=== PATIENT | female | born 1975 | race Caucasian/White ===

== ENCOUNTER → 2019-06-08 18:23 | Outpatient (ROUT) | payer OTHER, SELFPAY ==
[2019-06-08 18:36] LABS: Add Manual Diff / Slide Review NO; Basophils Absolute Auto 100 /uL (0-100); Basophils Percent Auto 0.6 % (0-2); Eosinophils Absolute Auto 200 /uL (0-450); Eosinophils Percent Auto 2.3 % (2-4); Hematocrit 41.5 % (36-46); Hemoglobin 13.9 g/dL (12.0-16.0); Lymphocytes Absolute Auto 2500 /uL (1100-4500); Lymphocytes Percent Auto 26.7 % (25-40); Mean Corpuscular HGB Conc 33.6 % (30-36); Mean Corpuscular Hemoglobin 30.1 PG (26-34); Mean Corpuscular Volume 89.7 fL (80-100); Monocytes Absolute Auto 600 /uL (0-900); Neutrophils Absolute Auto 6100 /uL (1500-7000); Neutrophils Percent Auto 64.4 % (50-75); Platelet Count 337 X10^3/uL (150-400); Red Blood Cell Count 4.63 X10^6/uL (4.0-5.2); Red Cell Distribution Width 12.8 % (11.6-14.8); White Blood Cell Count 9.4 X10^3/uL (4.5-11.0)
[2019-06-08 18:44] LABS: Alanine Aminotransferase 26 IU/L (9-52); Albumin 4.4 g/dL (3.5-5.0); Albumin Globulin Ratio 1.6 (1.0-2.8); Alkaline Phosphatase 45 U/L (38-126); Aspartate Aminotransferase 29 IU/L (14-36); Bilirubin Total 0.4 mg/dL (0.2-1.3); Blood Urea Nitrogen 20 mg/dL (7-17); Calcium 9.9 mg/dL (8.4-10.2); Carbon Dioxide 27 mmol/L (22-32); Chloride 102 mmol/L (98-107); Cholesterol 220 mg/dL (140-199); Estimated Glomerular Filt Rate > 60.0 mL/min (>60); Globulin 2.8 g/dL (1.7-4.1); Glucose 95 mg/dL (70-100); HDL Cholesterol 62 mg/dL (40-60); HEMOLYSIS < 15 (0-50); LDL Cholesterol Calculated 117 mg/dL (<100); Potassium 4.3 mmol/L (3.4-5.1); Sodium 139 mmol/L (137-145); Total Protein 7.2 g/dL (6.3-8.2); Triglycerides 207 mg/dL (35-150)
[2019-06-08 18:59] LABS: Erythrocyte Sedimentation Rate 8 MM/HR (0-20)
== END ==
PROVIDERS: PCP Internal Medicine; Visit Provider Physician Assistant
DX: G44.52 New daily persistent headache (NDPH) (principal); R00.2 Palpitations; E78.5 Hyperlipidemia, unspecified; R23.2 Flushing
CPT/HCPCS: 80053; 80061; 83735; 84443; 85025; 85651; 86140

== ENCOUNTER → 2019-06-21 09:04 | Outpatient (CLI) | payer OTHER, SELFPAY ==
--- NOTE | 2019-06-21 | DI.RAD.S_ITS ---
PROCEDURE: XR CERVICAL SPINE 4V OR 5V INDICATIONS: Cervicalgia TECHNIQUE: 5 views of the cervical spine acquired. COMPARISON: None. FINDINGS: Bones: No fractures or dislocations to the T2 level. Oblique images demonstrate no bony foraminal stenoses. No acute compression fractures. Multilevel cervical spondylosis most pronounced at C5-6 and C6-7. Soft tissues: No prevertebral soft tissue swelling. IMPRESSION: Multilevel cervical spondylosis most pronounced at C5-6 and C6-7. No significant neural foraminal narrowing seen on the oblique views. No acute radiographic abnormalities. Dictated by: Shubham Fermin M.D. on 06/21/2019 at 10:35 Approved by: Shubham Fermin M.D. on 06/21/2019 at 10:37
== END ==
PROVIDERS: PCP Physician Assistant; Visit Provider Physician Assistant
DX: M54.2 Cervicalgia (principal); M47.812 Spondylosis without myelopathy or radiculopathy, cervical region
CPT/HCPCS: 72050

== ENCOUNTER → 2020-08-15 19:20 | Outpatient (ROUT) | payer OTHER, SELFPAY ==
[2020-08-15 19:45] LABS: Add Manual Diff / Slide Review NO; Basophils Absolute Auto 0 /uL (0-100); Basophils Percent Auto 0.3 % (0-2); Eosinophils Absolute Auto 300 /uL (0-450); Hematocrit 40.4 % (36-46); Hemoglobin 13.8 g/dL (12.0-16.0); Lymphocytes Absolute Auto 2900 /uL (1100-4500); Lymphocytes Percent Auto 31.6 % (25-40); Mean Corpuscular HGB Conc 34.1 % (30-36); Mean Corpuscular Hemoglobin 30.4 PG (26-34); Mean Corpuscular Volume 89.1 fL (80-100); Monocytes Absolute Auto 900 /uL (0-900); Monocytes Percent Auto 9.6 % (3-14); Neutrophils Absolute Auto 5200 /uL (1500-7000); Neutrophils Percent Auto 55.5 % (50-75); Platelet Count 359 X10^3/uL (150-400); Red Blood Cell Count 4.53 X10^6/uL (4.0-5.2); Red Cell Distribution Width 12.9 % (11.6-14.8); White Blood Cell Count 9.3 X10^3/uL (4.5-11.0)
[2020-08-15 19:51] LABS: HEMOLYSIS < 15 (0-50); Iron 42 ug/dL (37-170)
[2020-08-15 19:55] LABS: Alanine Aminotransferase 30 IU/L (<35); Albumin 4.6 g/dL (3.5-5.0); Albumin Globulin Ratio 1.6 (1.0-2.8); Alkaline Phosphatase 50 U/L (38-126); Aspartate Aminotransferase 32 IU/L (14-36); BUN Creatinine Ratio 22.2 (6-22); Bilirubin Total 0.3 mg/dL (0.2-1.3); Blood Urea Nitrogen 14 mg/dL (7-17); C-Reactive Protein Quant 2.1 mg/dL (<1.0); Calcium 9.9 mg/dL (8.4-10.2); Carbon Dioxide 29 mmol/L (22-32); Chloride 103 mmol/L (98-107); Cholesterol 223 mg/dL (140-199); Estimated Glomerular Filt Rate > 60.0 mL/min (>60); Globulin 2.8 g/dL (1.7-4.1); Glucose 93 mg/dL (70-100); HDL Cholesterol 63 mg/dL (40-60); HEMOLYSIS < 15 (0-50); LDL Cholesterol Calculated 136 mg/dL (<100); Magnesium 2.4 mg/dL (1.6-2.3); Potassium 4.3 mmol/L (3.4-5.1); Sodium 138 mmol/L (137-145); Total Protein 7.4 g/dL (6.3-8.2); Triglycerides 119 mg/dL (35-150)
[2020-08-15 20:01] LABS: Percent Iron Saturation 12 % (15-50); Total Iron Binding Capacity 357 ug/dL (265-497); Transferrin 284 mg/dL (206-381)
[2020-08-15 20:09] LABS: Vitamin D 25 Hydroxy (D3) 23.6 ng/mL (30.0-100.0)
[2020-08-15 20:23] LABS: TSH w/ Reflex to FT4 1.22 uIU/mL (0.47-4.68)
[2020-08-15 20:27] LABS: Ferritin 200 ng/mL (6-137)
[2020-08-15 20:30] LABS: Erythrocyte Sedimentation Rate 6 MM/HR (0-20)
[2020-08-15 20:41] LABS: Vitamin B12 568 pg/mL (239-931)
== END ==
PROVIDERS: PCP Physician Assistant; Visit Provider Physician Assistant
DX: R00.2 Palpitations (principal); E78.5 Hyperlipidemia, unspecified; R51.9 Headache, unspecified; D64.9 Anemia, unspecified
CPT/HCPCS: 80053; 80061; 82306; 82607; 82728; 83540; 83550; 83735; 84443; 85025; 85651; 86140

== ENCOUNTER → 2020-08-19 09:42 | Outpatient (CLI) | payer OTHER, SELFPAY ==
--- NOTE | 2020-08-19 | DI.MRI.S_ITS ---
PROCEDURE: MR HEAD/BRAIN WO/W CON INDICATIONS: Chronic headache. Delayed speech. Blurry vision. Other symptoms and signs involving the nervous sys TECHNIQUE: Noncontrast axial T1 spin echo, axial T2 fast spin echo, sagittal and axial FLAIR, coronal T2 fast spin echo, axial gradient echo, axial diffusion and ADC through the brain. After the administration of contrast, axial and coronal 3D VIBE or T1 spin echo with fat saturation through the brain. COMPARISON: None. FINDINGS: Image quality: Diagnostic, with note made of motion artifact. CSF Spaces: Basal cisterns are patent. No extra-axial fluid collections. Ventricles are normal in size and shape. Brain: No midline shift. No intracranial bleeds or masses. No abnormal intracranial enhancement. The brainstem appears normal. Diffusion-weighted images demonstrate no acute ischemic insults. No chronic ischemic insults. Normal intravascular flow voids are present. Skull and face: Calvarial marrow is normal in signal. Orbits appear normal. Sinuses: Sinuses and mastoids appear clear. Note is made of mild leftward nasal septal deviation. IMPRESSION: No imaging explanation is found for this patient's presenting symptoms. No findings of acute or subacute infarction can be seen. No masses or abnormal enhancement can be seen. Dictated by: Matt Allan M.D. on 08/19/2020 at 9:53 Approved by: Matt Allan M.D. on 08/19/2020 at 9:55
== END ==
PROVIDERS: PCP Physician Assistant; Referring Provider Physician Assistant; Visit Provider Physician Assistant
DX: R51.0 Headache with orthostatic component, not elsewhere classified (principal); H53.8 Other visual disturbances; F80.9 Developmental disorder of speech and language, unspecified; R29.818 Other symptoms and signs involving the nervous system
CPT/HCPCS: 70553

== ENCOUNTER → 2020-11-28 09:39 | Outpatient (CLI) | payer OTHER, SELFPAY ==
[2020-11-28] MEDS: COVID-19 VACC #1, MRNA(MOD) 100 MCG/0.5 ML VIAL IM (09:46)
== END ==
PROVIDERS: PCP Physician Assistant; Visit Provider Internal Medicine
DX: Z23 Encounter for immunization (principal)
CPT/HCPCS: 0011A; 91301

== ENCOUNTER → 2021-01-01 09:42 | Outpatient (CLI) | payer OTHER, SELFPAY ==
[2021-01-01] MEDS: COVID-19 VACC #2, MRNA(MOD) 100 MCG/0.5 ML VIAL IM (09:52)
== END ==
PROVIDERS: PCP Physician Assistant; Visit Provider Internal Medicine
DX: Z23 Encounter for immunization (principal)
CPT/HCPCS: 0012A; 91301

== ENCOUNTER 2021-12-10 00:37 | Emergency (ER) | payer OTHER, SELFPAY ==
[2021-12-10] VITALS (20 sets, daily range): BP systolic 144–192; BP diastolic 92–113; PULSE 73–99; RESP 0–25; TEMP 36.7; O2SAT 86–100
--- NOTE | 2021-12-10 00:55 | DI.RAD.S_ITS ---
PROCEDURE: XR CHEST 1V INDICATIONS: syncope TECHNIQUE: One view of the chest was acquired. COMPARISON: None. FINDINGS: Surgical changes and devices: None. Lungs and pleura: Lungs are clear. No pleural effusions or pneumothorax. Mediastinum: Mediastinal contours appear normal. Heart size is normal. Bones and chest wall: No suspicious bony lesions. Overlying soft tissues appear unremarkable. IMPRESSION: Portable chest within normal limits. Dictated by: Matt Allan M.D. on 12/10/2021 at 0:06 Approved by: Matt Allan M.D. on 12/10/2021 at 0:06
--- NOTE | 2021-12-10 01:00 | ED.ARRPALP ---
HPI - Arrhythmia/Palpitations General Chief Complaint: Arrhythmia/Palpitations Stated Complaint: PASSED OUT AND HIT HEAD Time Seen by Provider: 12/10/21 01:00 Source: patient Mode of arrival: Ambulatory History of Present Illness HPI narrative: Otherwise healthy 46-year-old currently on oral contraceptives only was getting ready for bed brushing her teeth in the bathroom felt significant palpitations and then woke up on the floor complaining of head pain on the right side of her head and right arm pain from falling. She reports no other injuries or trauma. Upon awakening there was no loss of bowel or bladder. She was no longer experiencing any palpitations, having no chest pain. No nausea, vomiting, diarrhea. Some tenderness on the right side of her head where her head hit the floor but no overt headache. No gross neurologic complaints. Related Data Previous Rx's Medication Instructions Recorded levonorgestrel-ethinyl estradiol 1 tab PO QDAY #3 pac 10/16/16 0.1 mg-20 mcg tablet (Aviane) topiramate 25 mg tablet (Topamax) 25 mg PO QDAY #30 tab 10/16/16 topiramate 100 mg tablet (Topamax) 100 mg PO HS #30 tab 06/15/18 levonorgestrel-ethinyl estradiol 1 tab PO QDAY #28 tab 08/03/18 0.1 mg-20 mcg tablet (Aviane) Allergies Allergy/AdvReac Type Severity Reaction Status Date / Time No Known Drug Allergies Allergy Verified 12/10/21 02:55 Review of Systems Review of Systems Narrative: The remainder of review Patient History Family History Grandfather Heart disease Grandmother Age: 90 Cancer Mother Age: 70 Chronic lymphatic leukemia Hypertension High cholesterol H/O brain surgery Grandfather Heart disease Grandmother Hypothyroidism Social History Smoking Status: Never smoker Smoking Status: Never smoker Exam Initial Vital Signs Initial Vital Signs: Vital Signs Temperature 98.1 F 12/10/21 00:55 Pulse Rate 80 12/10/21 00:55 Respiratory Rate 22 12/10/21 00:55 Blood Pressure 176/109 H 12/10/21 00:55 Pulse Oximetry 100 12/10/21 00:55 General: Healthy appearing, in no acute distress. Able to give a complete and coherent history. Well-nourished well-developed HEENT: Moist mucous membranes, normal sclera with reactive pupils, minor tenderness in the right parietal area where her head the floor. There is no contusion or abrasion. Neck: No cervical spine tenderness. supple Respiratory: Lungs are clear to auscultation, no wheezing no rales no rhonchi. Full and symmetrical air movement Cardiac: Regular rate and rhythm no murmurs no bruits Abdomen: Soft, nontender, good bowel tones, no flank pain Skin: Warm and dry, no rashes Neurologic: Grossly neurologically intact with no obvious asymmetries or abnormalities Extremities: Minor tenderness to the right elbow with full range of motion, no abrasions and no effusion. Lower extremities with no significant edema or tenderness and Well perfused Psych: Cooperative, appropriate insight and affect Course Orders Ordered: ED Orders 12/10/21 00:50 Complete Blood Count AUTO DIFF Stat Comprehensive Metabolic Panel Stat D Dimer Stat Lipase Stat Troponin & CK Cardiac Panel Stat 12/10/21 00:55 XR chest 1V Stat EKG-12 Lead Stat 12/10/21 01:14 CT head/brain wo con Stat 12/10/21 01:28 COVID19 -Nasal swab/Pre-Proc Stat 12/10/21 02:45 Magnesium Stat Trop I [Troponin I] Stat 12/10/21 03:39 EKG-12 Lead Stat 12/10/21 09:30 PTT [Partial Thromboplastin Time] Q6H 12/10/21 15:30 PTT [Partial Thromboplastin Time] Q6H 12/10/21 21:30 PTT [Partial Thromboplastin Time] Q6H 12/11/21 03:30 PTT [Partial Thromboplastin Time] Q6H Heparin Sodium/Dextrose (Heparin Drip) 25,000 unit in 500 mls @ 20 mls/hr IV CONT MISTI; Protocol Last Admin: 12/10/21 03:36 Dose: 1,000 units/hr, 20 mls/hr Documented by: Discontinued Medications Aspirin (Aspirin 81 Mg Chew Tab) 324 mg PO NOW ONE Stop: 12/10/21 02:39 Last Admin: 12/10/21 02:43 Dose: 324 mg Documented by: ALAYNA Heparin Sodium (Porcine) (Heparin 5,000 Unit/Ml Vial) 4,000 unit IV NOW ONE Stop: 12/10/21 03:17 Last Admin: 12/10/21 03:36 Dose: 4,000 unit Documented by: Labetalol HCl (Labetalol 20 Mg/4 Ml Syringe) 20 mg IV NOW ONE Stop: 12/10/21 03:42 Last Admin: 12/10/21 03:44 Dose: 20 mg Documented by: Metoprolol Tartrate (Metoprolol Tartrate 5 Mg/5 Ml Inj) 5 mg IV Q5M MISTI Stop: 12/10/21 02:56 Last Admin: 12/10/21 03:00 Dose: 5 mg Documented by: Admin: 12/10/21 02:54 Dose: 5 mg Documented by: Admin: 12/10/21 02:43 Dose: 5 mg Documented by: ALAYNA Nitroglycerin (Nitroglycerin Oint 1 Inch/Gm Oint...G.) 1 inch TOP NOW ONE Stop: 12/10/21 03:07 Last Admin: 12/10/21 03:12 Dose: 1 inch Documented by: ALAYNA Potassium Chloride (Potassium Chloride 20 Meq Tab) 40 meq PO NOW ONE Stop: 12/10/21 02:35 Last Admin: 12/10/21 02:43 Dose: 40 meq Documented by: ALAYNA Vital Signs Vital signs: Vital Signs - 8 hr 12/10/21 00:55 12/10/21 01:03 12/10/21 01:10 Temperature 98.1 F Pulse Rate 80 82 87 Respiratory Rate 22 20 25 H Blood Pressure 176/109 H 182/99 H Pulse Oximetry 100 98 98 12/10/21 01:24 12/10/21 01:30 12/10/21 02:00 Temperature Pulse Rate 80 78 80 Respiratory Rate 0 L 0 L Blood Pressure 159/99 H 163/107 H Pulse Oximetry 99 98 97 12/10/21 02:30 12/10/21 02:47 12/10/21 02:54 Temperature Pulse Rate 86 99 H 82 Respiratory Rate Blood Pressure 176/103 H 192/110 H 183/103 H Pulse Oximetry 97 98 98 12/10/21 03:00 12/10/21 03:02 12/10/21 03:11 Temperature Pulse Rate 73 73 73 Respiratory Rate Blood Pressure 188/113 H 189/110 H 175/104 H Pulse Oximetry 98 97 98 12/10/21 03:44 Temperature Pulse Rate 74 Respiratory Rate Blood Pressure 190/112 H Pulse Oximetry MDM - Arrhythmia/Palpitations Lab Data Result diagrams: 12/10/21 00:50 12/10/21 00:50 Labs: Lab Results 12/10/21 12/10/21 12/10/21 Range/Units 00:50 00:50 00:50 WBC 9.7 (4.5-11.0) X10^3/uL RBC 4.53 (4.0-5.2) X10^6/uL Hgb 13.9 (12.0-16.0) g/dL Hct 40.1 (36-46) % MCV 88.5 (80-100) fL MCH 30.7 (26-34) PG MCHC 34.7 (30-36) % RDW 13.0 (11.6-14.8) % Plt Count 306 (150-400) X10^3/uL Neut % (Auto) 55.9 (50-75) % Lymph % (Auto) 33.3 (25-40) % [place] % (Auto) 4.9 (3-14) % Eos % (Auto) 3.5 (2-4) % Baso % (Auto) 2.4 H (0-2) % Neut # (Auto) 5400 (5796-0846) /uL Lymph # (Auto) 3200 (6467-7373) /uL [place] # (Auto) 500 (0-900) /uL Eos # (Auto) 300 (0-450) /uL Baso # (Auto) 200 H (0-100) /uL D-Dimer < 200 (<230) ng/mL Sodium 137 (137-145) mmol/L Potassium 3.2 L (3.4-5.1) mmol/L Chloride 104 (98-107) mmol/L Carbon Dioxide 26 (22-32) mmol/L BUN 12 (7-17) mg/dL Creatinine 0.65 (0.52-1.04) mg/dL Estimated GFR > 60.0 (>60) mL/min BUN/Creatinine Ratio 18.5 (6-22) Glucose 114 H (70-100) mg/dL Calcium 9.1 (8.4-10.2) mg/dL Magnesium (1.6-2.3) mg/dL Total Bilirubin 0.4 (0.2-1.3) mg/dL AST 25 (14-36) IU/L ALT 22 (<35) IU/L Alkaline Phosphatase 38 (38-126) U/L Total Creatine Kinase 59 (30-135) U/L CK-MB (CK-2) TNP CK-MB (CK-2) Rel Index TNP Troponin I 0.041 H (0.01-0.034) ng/mL Total Protein 7.4 (6.3-8.2) g/dL Albumin 4.4 (3.5-5.0) g/dL Globulin 3.0 (1.7-4.1) g/dL Albumin/Globulin Ratio 1.5 (1.0-2.8) Lipase 188 (23-300) U/L SARS-CoV-2 (PCR) (Negative) 12/10/21 12/10/21 12/10/21 Range/Units 01:28 02:45 02:45 WBC (4.5-11.0) X10^3/uL RBC (4.0-5.2) X10^6/uL Hgb (12.0-16.0) g/dL Hct (36-46) % MCV (80-100) fL MCH (26-34) PG MCHC (30-36) % RDW (11.6-14.8) % Plt Count (150-400) X10^3/uL Neut % (Auto) (50-75) % Lymph % (Auto) (25-40) % [place] % (Auto) (3-14) % Eos % (Auto) (2-4) % Baso % (Auto) (0-2) % Neut # (Auto) (5139-2447) /uL Lymph # (Auto) (2732-8707) /uL [place] # (Auto) (0-900) /uL Eos # (Auto) (0-450) /uL Baso # (Auto) (0-100) /uL D-Dimer (<230) ng/mL Sodium (137-145) mmol/L Potassium (3.4-5.1) mmol/L Chloride (98-107) mmol/L Carbon Dioxide (22-32) mmol/L BUN (7-17) mg/dL Creatinine (0.52-1.04) mg/dL Estimated GFR (>60) mL/min BUN/Creatinine Ratio (6-22) Glucose (70-100) mg/dL Calcium (8.4-10.2) mg/dL Magnesium 2.1 (1.6-2.3) mg/dL Total Bilirubin (0.2-1.3) mg/dL AST (14-36) IU/L ALT (<35) IU/L Alkaline Phosphatase (38-126) U/L Total Creatine Kinase (30-135) U/L CK-MB (CK-2) CK-MB (CK-2) Rel Index Troponin I 0.190 H* (0.01-0.034) ng/mL Total Protein (6.3-8.2) g/dL Albumin (3.5-5.0) g/dL Globulin (1.7-4.1) g/dL Albumin/Globulin Ratio (1.0-2.8) Lipase (23-300) U/L SARS-CoV-2 (PCR) Negative (Negative) Imaging Data Chest x-ray: Radiologist's Impresson: FINDINGS:? ? Surgical changes and devices:? None.? ? Lungs and pleura:? Lungs are clear.? No pleural effusions or pneumothorax.? ? Mediastinum:? Mediastinal contours appear normal.? Heart size is normal.? ? Bones and chest wall:? No suspicious bony lesions.? Overlying soft tissues appear unremarkable.? ? IMPRESSION:? ? Portable chest within normal limits. ? ? ? Dictated by: Matt Allan M.D. on 12/10/2021 at 0:06 ? ? CT scan - head: Radiologist's Impresson: FINDINGS:? Image quality:? Excellent.? ? CSF spaces:? Basal cisterns are patent.? No extra-axial fluid collections.? Ventricles are normal in size and shape.? ? Brain:? No midline shift.? No intracranial masses or hemorrhage.? [place]-white matter interface is normal.? ? Skull and face:? There is a minimal soft tissue scalp hematoma seen involving the right parietal region, as on series 2 image 22. No underlying calvarial fracture is seen.? Calvarium and visualized facial bones are intact, without suspicious lesions.? ? Sinuses:? Visualized sinuses and mastoids are clear.? IMPRESSION:? Normal intracranial head CT. ? No acute intracranial hemorrhage is seen.? ? Minimal right parietal scalp hematoma. ? No displaced calvarial fracture is seen.? ? ? Dictated by: Matt Allan M.D. on 12/10/2021 at 0:26 ? ? ECG Data Interpretation: Sinus rhythm at a rate of 87 Normal intervals, normal axis No acute ischemic changes #2 3:57 am Sinus rhythm at a rate of 78 No significant changes from previous MDM Narrative Medical decision making narrative: 46-year-old woman with no significant medical history describes an acute onset of rapid heartbeat followed by syncope, waking up on the ground no evidence of seizure. No intracranial hemorrhage. Slightly elevated troponin. She is still significantly hypertensive. Will try IV metoprolol and evaluate the response. To be given 325 aspirin. Her D-dimer returns less than 200 so pulmonary embolism is not an immediate concern. She remains pain free and has been in a sinus rhythm mild tachycardia in the 100 range. Explained to her that we are going to repeat the troponin and when I have those results back up talking with escrow assistant colleagues and come up with a definitive treatment plan for her 2:45 Second troponin is increasing Heparin is started. Nitropaste is placed. Metoprolol help nicely with rate but was not very effective with blood pressure control. Beginning to make phone calls looking for transfer, [facility] full [facility], [facility] in [place] is no beds available at this time. Wait list [facility]. NO at [facility]. has a bed, waiting for hospitalist 350 Little change after adding topical nitrates to blood pressure. 20mg IV labetolol given. Pressure is trending down. 405 Care is reveiwed, DR Ankush Black, hospitalist excepts transfer. Transport will be called. Patient is updated. Questions are answered Critical Care Time Critical Care Time Critical Care Time: Yes Total Critical Care Time: 33 Attestation: Critical care time is separate from other billable procedures. There is a high probability of a significant, sudden or life-threatening deterioration that requires my full and direct attention, intervention and personal management. This critical care time includes consultation with family and other consulting doctors, review of records, and interpretation of data from labs, EKGs and imaging as well as managements of hypertension with IV medication, cardiac arrhythmia and and STEMI. Discharge Plan Departure Patient Disposition: [facility] Clinical Impression: Cardiac related syncope, Non-ST elevation DE (NSTEMI) Prescriptions: No Action levonorgestrel-ethinyl estrad [Aviane] 1 EACH tablet 1 tab PO QDAY Qty: 3 4RF topiramate [Topamax] 25 MG tablet 25 mg PO QDAY Qty: 30 1RF topiramate [Topamax] 100 mg tablet 100 mg PO HS Qty: 30 0RF Rx Instructions: Please schedule follow up levonorgestrel-ethinyl estrad [Aviane] 0.1-20 mg-mcg tablet 1 tab PO QDAY Qty: 28 0RF Rx Instructions: Still needs to establish w/pcp. No future fills until established. 08/03/18 Referrals: Allegra Eden PA-C [Primary Care Provider] -
--- NOTE | 2021-12-10 01:04 | PC.NURSE ---
pt states she had a syncopal episode at home after having some palpitations, pt denies any previous hx of such, pt is aao x 3 ambulated to room without difficulty denies any cp
[2021-12-10 01:05] LABS: Add Manual Diff / Slide Review NO; Basophils Absolute Auto 200 /uL (0-100); Basophils Percent Auto 2.4 % (0-2); Eosinophils Absolute Auto 300 /uL (0-450); Eosinophils Percent Auto 3.5 % (2-4); Hematocrit 40.1 % (36-46); Hemoglobin 13.9 g/dL (12.0-16.0); Lymphocytes Absolute Auto 3200 /uL (1100-4500); Lymphocytes Percent Auto 33.3 % (25-40); Mean Corpuscular HGB Conc 34.7 % (30-36); Mean Corpuscular Hemoglobin 30.7 PG (26-34); Mean Corpuscular Volume 88.5 fL (80-100); Monocytes Absolute Auto 500 /uL (0-900); Monocytes Percent Auto 4.9 % (3-14); Neutrophils Absolute Auto 5400 /uL (1500-7000); Neutrophils Percent Auto 55.9 % (50-75); Platelet Count 306 X10^3/uL (150-400); Red Blood Cell Count 4.53 X10^6/uL (4.0-5.2); White Blood Cell Count 9.7 X10^3/uL (4.5-11.0)
[2021-12-10 01:10] LABS: Alanine Aminotransferase 22 IU/L (<35); Albumin 4.4 g/dL (3.5-5.0); Albumin Globulin Ratio 1.5 (1.0-2.8); Alkaline Phosphatase 38 U/L (38-126); Aspartate Aminotransferase 25 IU/L (14-36); BUN Creatinine Ratio 18.5 (6-22); Bilirubin Total 0.4 mg/dL (0.2-1.3); Blood Urea Nitrogen 12 mg/dL (7-17); Calcium 9.1 mg/dL (8.4-10.2); Carbon Dioxide 26 mmol/L (22-32); Chloride 104 mmol/L (98-107); Creatine Kinase 59 U/L (30-135); Estimated Glomerular Filt Rate > 60.0 mL/min (>60); Glucose 114 mg/dL (70-100); HEMOLYSIS < 15 (0-50); Lipase 188 U/L (23-300); Potassium 3.2 mmol/L (3.4-5.1); Sodium 137 mmol/L (137-145); Total Protein 7.4 g/dL (6.3-8.2)
--- NOTE | 2021-12-10 01:14 | DI.CT.S_ITS ---
PROCEDURE: CT HEAD/BRAIN WO CON INDICATIONS: syncope, hit head TECHNIQUE: Noncontrast 4.5 mm thick angled axial sections acquired from the foramen magnum to the vertex, with coronal and sagittal reformats. For radiation dose reduction, the following was used: automated exposure control, adjustment of mA and/or kV according to patient size. COMPARISON: [facility], CR, XR CHEST 1V, 12/10/2021, 0:56. [facility], MR, MR HEAD/BRAIN WO/W CON, 08/19/2020, 10:04. FINDINGS: Image quality: Excellent. CSF spaces: Basal cisterns are patent. No extra-axial fluid collections. Ventricles are normal in size and shape. Brain: No midline shift. No intracranial masses or hemorrhage. [place]-white matter interface is normal. Skull and face: There is a minimal soft tissue scalp hematoma seen involving the right parietal region, as on series 2 image 22. No underlying calvarial fracture is seen. Calvarium and visualized facial bones are intact, without suspicious lesions. Sinuses: Visualized sinuses and mastoids are clear. IMPRESSION: Normal intracranial head CT. No acute intracranial hemorrhage is seen. Minimal right parietal scalp hematoma. No displaced calvarial fracture is seen. Dictated by: Matt Allan M.D. on 12/10/2021 at 0:26 Approved by: Matt Allan M.D. on 12/10/2021 at 0:27
[2021-12-10 01:21] LABS: Troponin I 0.041 ng/mL (0.01-0.034)
[2021-12-10 01:36] LABS: D Dimer < 200 ng/mL (<230)
[2021-12-10 01:53] LABS: COVID19 -Nasal RAPID Negative (Negative)
[2021-12-10] MEDS: ASPIRIN 81 MG CHEW TAB 324 MG PO (02:43)
[2021-12-10] MEDS: POTASSIUM CHLORIDE 20 MEQ TAB 40 MEQ PO (02:43)
[2021-12-10] MEDS: METOPROLOL TARTRATE 5 MG/5 ML INJ IV ×3 (02:43→03:00)
[2021-12-10 03:06] LABS: Magnesium 2.1 mg/dL (1.6-2.3)
[2021-12-10] MEDS: NITROGLYCERIN OINT 1 INCH/GM OINT...G. TOP (03:12)
[2021-12-10] MEDS: HEPARIN DRIP 25,000 UNIT/500 ML IV.SOLN 20 UNIT IV (03:36)
[2021-12-10] MEDS: HEPARIN 5,000 UNIT/ML VIAL 4000 UNIT IV (03:36)
[2021-12-10] MEDS: LABETALOL 20 MG/4 ML SYRINGE IV (03:44)
--- NOTE | 2021-12-10 04:53 | PC.NURSE ---
report given to CCT crew
== END 2021-12-10 05:00 | disposition short-term general hospital (02) ==
PROVIDERS: Emergency Provider Emergency Medicine; PCP Physician Assistant
DX: I21.4 Non-ST elevation (NSTEMI) myocardial infarction (principal); R55 Syncope and collapse; I10 Essential (primary) hypertension; Z20.822 Contact with and (suspected) exposure to COVID-19
CPT/HCPCS: 36415; 70450; 71045; 80053; 82550; 83690; 83735; 84484; 85025; 85379; 87635; 93005; 96374; 96375; 99285; 99291; C9803; J1644

== ENCOUNTER → 2023-07-09 13:17 | Outpatient (CLI) | payer OTHER, SELFPAY ==
--- NOTE | 2023-07-09 | DI.MG.S_ITS ---
BILATERAL DIGITAL SCREENING MAMMOGRAM 3D/2D WITH CAD: 07/09/2023 CLINICAL: Baseline exam. Routine screening. Family history of breast cancer. No prior exams were available for comparison. Both breasts are heterogeneously dense, which may obscure small masses (category c / 51-75% glandular tissue). Current study was also evaluated with a Computer Aided Detection (CAD) system. No significant masses, calcifications, or other findings are seen in either breast. IMPRESSION: NEGATIVE There is no mammographic evidence of malignancy. A 1 year screening mammogram is recommended. Based on Tyrer-Cuzick model (a risk assessment model), the patient's lifetime risk is 21.1% and her 10 year risk is 4.5%. If a patient has an elevated risk, a more comprehensive evaluation should be considered and/or a referral to a genetic counselor. The [employer], [employer], and NCCN Guidelines advise the consideration of Breast MRI as an adjunct to screening mammography in patients whose Lifetime risk to develop breast cancer is 20% or higher. This exam was interpreted at Station ID: [id number]. NOTE: For mammograms, a report in lay terms will be sent to the patient. Approximately 15% of breast malignancies will not be visualized mammographically. In the management of a palpable breast mass, a negative mammogram must not discourage biopsy of a clinically suspicious lesion. Electronically Signed By: Antonio toro/clif:07/12/2023 12:44:03 letter sent: Normal Exam ACR BI-RADS Category 1: Negative [id number]
[2023-07-09 14:21] LABS: HEMOLYSIS < 15 (0-50); Potassium 3.9 mmol/L (3.4-5.1)
[2023-07-09 14:22] LABS: Blood Urea Nitrogen 17 mg/dL (7-17); Calcium 9.3 mg/dL (8.4-10.2); Carbon Dioxide 23 mmol/L (22-32); Chloride 105 mmol/L (98-107); Estimated Glomerular Filt Rate > 60 mL/min (>60); Glucose 106 mg/dL (70-100); Sodium 136 mmol/L (137-145)
== END ==
PROVIDERS: Referring Provider Internal Medicine Cardiovascular Disease; Visit Provider Internal Medicine Cardiovascular Disease
DX: Z12.31 Encounter for screening mammogram for malignant neoplasm of breast (principal); Z80.3 Family history of malignant neoplasm of breast; I10 Essential (primary) hypertension
CPT/HCPCS: 36415; 77063; 77067; 80048